=== PATIENT | male | born 1975 | race Caucasian/White ===

== ENCOUNTER 2022-04-17 11:43 | Emergency (ER) | payer MEDICARE, MEDICAID ==
[~2022-04-17] VITALS: Ht 177.8 cm; Wt 90.0 kg
[2022-04-17 12:37] LABS: BASOPHILS # (AUTO) 0.1 X10'3 (0-0.2); BASOPHILS % (AUTO) 1.7 % (0-1); EOSINOPHILS % (AUTO) 0.5 % (0-6); HEMATOCRIT 43.4 % (42.0-52.0); HEMOGLOBIN 15.2 g/dl (14.0-17.9); LYMPHOCYTES # (AUTO) 0.8 X10'3 (1.1-4.8); LYMPHOCYTES % (AUTO) 10.3 % (21-51); MEAN CORPUSCULAR HEMOGLOBIN 31.4 PG (27.0-31.0); MEAN CORPUSCULAR VOLUME 89.7 FL (78-98); MEAN PLATELET VOLUME 6.8 FL (7.4-10.4); MONOCYTES % (AUTO) 13.2 % (2-12); NEUTROPHILS # (AUTO) 5.6 X10'3 (1.8-7.7); NEUTROPHILS % (AUTO) 74.3 % (42-75); PLATELET COUNT 176 X10'3 (140-440); RED BLOOD COUNT 4.84 X10'6 (4.70-6.10); RED CELL DISTRIBUTION WIDTH 15.1 % (11.5-14.5); WHITE BLOOD COUNT 7.5 X10'3 (4.5-11.0)
[2022-04-17 12:53] LABS: ALANINE AMINOTRANSFERASE 18 U/L (12-78); ALBUMIN 3.8 G/DL (3.4-5.0); ALBUMIN/GLOBULIN RATIO 1.2 (1.1-1.5); ALKALINE PHOSPHATASE 60 IU/L (46-116); ANION GAP 9 (8-16); ASPARTATE AMINO TRANSFERASE 17 U/L (10-37); BILIRUBIN,TOTAL 0.3 MG/DL (0.1-1.0); BLOOD UREA NITROGEN 10 MG/DL (7-18); BUN/CREATININE RATIO 10.8 (5.4-32.0); CALCIUM 9.4 MG/DL (8.5-10.1); CHLORIDE 99 MMOL/L (99-107); CREATININE 0.93 MG/DL (0.60-1.10); GLUCOSE 131 MG/DL (70-104); POTASSIUM 4.2 MMOL/L (3.5-5.1); SODIUM 135 MMOL/L (135-145); TOTAL CARBON DIOXIDE 27.2 MMOL/L (24-32); eGFR 87 ML/MIN
[2022-04-17 13:02] LABS: ETHANOL < 0.010 GM/DL (0.0-0.010); VALPROATE 92 UG/ML (50-100)
[2022-04-17 14:06] LABS: CLARITY,URINE CLEAR (Clear); COLOR,URINE YELLOW (Yellow); GLUCOSE, URINE >=1000 mg/dl (Neg); KETONES,URINE >=80 mg/dl (Neg); LEUKOCYTE ESTERASE ,URINE NEGATIVE (Neg); NITRITES, URINE NEGATIVE (Neg); OCCULT BLOOD,URINE NEGATIVE (Neg); PROTEIN,URINE NEGATIVE (Neg); UROBILINOGEN,URINE 0.2 E.U/dL (0.2-1.0)
[2022-04-17 14:11] LABS: UA COLLECTION TYPE URINAL
[2022-04-17 14:15] LABS: BACTERIA,URINE FEW /HPF (Neg); MUCUS STRANDS FEW /LPF (Neg); RBC,URINE 0-2 /HPF (0-2); SQUAMOUS EPITHELIAL CELL,UR FEW /LPF (FEW); WBC,URINE 0-4 /HPF (0-4)
[2022-04-17 14:20] LABS: URINE AMPHETAMINE SCREEN NEGATIVE (Neg); URINE BARBITUATE SCREEN NEGATIVE (Neg); URINE BENZODIAZEPINES SCREEN NEGATIVE (Neg); URINE CANNABINOID SCREEN NEGATIVE (Neg); URINE COCAINE SCREEN NEGATIVE (Neg); URINE METHADONE SCREEN NEGATIVE (Neg); URINE OPIATE SCREEN NEGATIVE (Neg); URINE PHENCYCLIDINE SCREEN NEGATIVE (Neg)
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
--- NOTE | 2022-04-17 17:25 | NUR ---
ANITHA FROM [facility] STATES THAT [facility] IS AN IMD WHICH IS A HIGHER LEVEL OF CARE THAN A PHF. PT IS CONCERVED BUT NOT CONSERVED THROUGH [employer] PER AVAILABLE RECORDS.
--- NOTE | 2022-04-17 18:07 | NUR ---
SULMA YOU FROM [facility] CALLED STATING THAT THEY NEED TO HAVE [facility] EVALUATE PT. MS YOU WAS INFORMED THAT ID [facility] HER EDDIE REGARDING THIS MATTER PHONE#
[2022-04-17] MEDS ORDERED: QUET-1 PO (20:26)
--- NOTE | 2022-04-18 07:39 | NUR ---
Received Pt awake and on gurney in main ER. Pt transfered to EROF from main ER and placed in bed 26. Pt's belongins inventoried and placed in locked cabinet and Pt placed in green scrubs. Pt resting quietly at this time.
--- NOTE | 2022-04-18 09:30 | NUR ---
Pt's Blood Glucose before breakfast was 88. Pt ate breakfast and was up to bathroom. Pt calm and cooperative and returned to sleep in bed.
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
[2022-04-18] MEDS ORDERED: MULT-1085 PO (11:24)
[2022-04-18] MEDS ORDERED: DIVA-52 PO (11:24)
[2022-04-18] MEDS ORDERED: QUET200T PO (11:24)
[2022-04-18] MEDS ORDERED: SODI100035 PO (11:24)
[2022-04-18] MEDS ORDERED: DIVA500T9 PO (11:24)
[2022-04-18] MEDS ORDERED: FLO0.4C PO (11:24)
[2022-04-18] MEDS ORDERED: ATOR10TA10 PO (11:24)
[2022-04-18] MEDS ORDERED: SALI45SP (11:24)
[2022-04-18] MEDS ORDERED: MELO-102 PO (11:24)
[2022-04-18] MEDS ORDERED: ICOS1CAP PO (11:24)
[2022-04-18] MEDS ORDERED: GABA300C PO (11:24)
[2022-04-18] MEDS ORDERED: LORA10TA7 PO (11:24)
[2022-04-18] MEDS ORDERED: EMPA10TA PO (11:24)
[2022-04-18] MEDS ORDERED: DOCU-148 PO (12:20)
--- NOTE | 2022-04-18 13:05 | NUR ---
Pt's Blood glucose before lunch was 143. Pt ate lunch well. A carb controlled diet was ordered. Pt remains sleepy and calm in bed.
[2022-04-18] MEDS: divalproex sod 250mg ER (24-hour) tablet PO SCH ×3 (13:44→20:21)
[2022-04-18] MEDS: tamsulosin 0.4mg capsule PO SCH (13:44)
[2022-04-18] MEDS: EMPAGLIFLOZIN 10 MG TABLET PO SCH (13:44)
[2022-04-18] MEDS: MELOXICAM 7.5 MG TABLET PO SCH (13:44)
[2022-04-18] MEDS: multivitamins, therapeutics tablet PO SCH (13:44)
[2022-04-18] MEDS: gabapentin 300mg capsule PO SCH ×2 (13:44→20:20)
--- NOTE | 2022-04-18 14:30 | NUR ---
Med Rec. completed on Pt and meds given per orders. Jun Public Guardian/Emmie De La Rosa, contacted and she reported the plan is to have Pt evaluated by [facility] and placed in an IN-pt facility.
--- NOTE | 2022-04-18 17:00 | NUR ---
Pt seen by [facility] clinician. Pt is in bed awake and cooperative. Pt given small amount of water and ice chips.
--- NOTE | 2022-04-18 18:40 | NUR ---
Patient ambulatory to BR, steady gait. No distress observed. Continue to monitor.
[2022-04-18] MEDS ORDERED: ICOSAPENT ETHYL PO SCH (20:00)
[2022-04-18] MEDS: atorvastatin 10mg tablet PO SCH (20:20)
[2022-04-18] MEDS: quetiapine 100mg tablet PO SCH (20:20)
[2022-04-18] MEDS: sodium chloride 1gm tablet PO SCH (20:21)
--- NOTE | 2022-04-18 20:32 | NUR ---
Patient's BG checked at 139. No insulin needed. RN gave patient his night time meds. Continue to monitor.
[2022-04-18] MEDS ORDERED: quetiapine 100mg tablet PO SCH (21:00)
--- NOTE | 2022-04-18 21:23 | NUR ---
RN checked on patient and patient is awake. Patient asked for sandwich and given. No distress observed. Continue to monitor.
--- NOTE | 2022-04-18 22:55 | NUR ---
Patient sleeping supine with snoring respirations. No distress observed. Continue to monitor.
--- NOTE | 2022-04-19 00:36 | NUR ---
Patient continues to sleep supine. Respirations are equal and nonlabored. No distress observed. Continue to monitor.
--- NOTE | 2022-04-19 02:05 | NUR ---
Patient sleeping supine. Respirations equal and non-labored. Continue to monitor.
--- NOTE | 2022-04-19 03:59 | NUR ---
Patient sleeping supine. No distress observed. Continue to monitor.
--- NOTE | 2022-04-19 05:47 | NUR ---
Patient sleeping on his right side. No distress observed. Continue to monitor.
--- NOTE | 2022-04-19 07:18 | NUR ---
The patient is resting on his bed. Covid test sent to the lab. Accucheck 93
[2022-04-19] MEDS: tamsulosin 0.4mg capsule PO SCH (07:39)
[2022-04-19] MEDS: multivitamins, therapeutics tablet PO SCH (07:39)
[2022-04-19] MEDS: gabapentin 300mg capsule PO SCH ×3 (07:39→20:40)
[2022-04-19] MEDS: loratadine 10mg tablet PO SCH (07:39)
[2022-04-19] MEDS: divalproex sod 250mg ER (24-hour) tablet PO SCH ×4 (07:39→20:41)
[2022-04-19] MEDS: MELOXICAM 7.5 MG TABLET PO SCH (07:39)
[2022-04-19] MEDS: sodium chloride 1gm tablet PO SCH ×2 (07:39→20:41)
[2022-04-19] MEDS: EMPAGLIFLOZIN 10 MG TABLET PO SCH (07:39)
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
[2022-04-19] MEDS: atorvastatin 10mg tablet PO SCH (20:40)
[2022-04-19] MEDS: quetiapine 100mg tablet PO SCH (20:42)
--- NOTE | 2022-04-19 20:44 | NUR ---
PT REFUSED FULL DOSE OF SEROQUEL DUE TO "BEING TOO TIRED IN THE MORNING". 200MG GIVEN.
[2022-04-20 00:36] LABS: ALANINE AMINOTRANSFERASE 16 U/L (12-78); ALBUMIN 3.1 G/DL (3.4-5.0); ALBUMIN/GLOBULIN RATIO 0.9 (1.1-1.5); ALKALINE PHOSPHATASE 60 IU/L (46-116); ANION GAP 8 (8-16); ASPARTATE AMINO TRANSFERASE 10 U/L (10-37); BILIRUBIN,TOTAL 0.2 MG/DL (0.1-1.0); BLOOD UREA NITROGEN 16 MG/DL (7-18); BUN/CREATININE RATIO 20.8 (5.4-32.0); CHLORIDE 105 MMOL/L (99-107); CREATININE 0.77 MG/DL (0.60-1.10); GLUCOSE 132 MG/DL (70-104); SODIUM 140 MMOL/L (135-145); TOTAL CARBON DIOXIDE 27.2 MMOL/L (24-32); TOTAL PROTEIN 6.5 G/DL (6.4-8.2); eGFR > 90 ML/MIN
[2022-04-20] MEDS: EMPAGLIFLOZIN 10 MG TABLET PO SCH (07:35)
[2022-04-20] MEDS: tamsulosin 0.4mg capsule PO SCH (07:35)
[2022-04-20] MEDS: gabapentin 300mg capsule PO SCH ×3 (07:35→21:00)
[2022-04-20] MEDS: loratadine 10mg tablet PO SCH (07:36)
[2022-04-20] MEDS: divalproex sod 250mg ER (24-hour) tablet PO SCH ×4 (07:36→21:01)
[2022-04-20] MEDS: multivitamins, therapeutics tablet PO SCH (07:38)
[2022-04-20] MEDS: sodium chloride 1gm tablet PO SCH ×2 (09:56→21:01)
[2022-04-20] MEDS: MELOXICAM 7.5 MG TABLET PO SCH (09:56)
[2022-04-20] MEDS: atorvastatin 10mg tablet PO SCH (21:00)
[2022-04-20] MEDS: quetiapine 100mg tablet PO SCH (21:02)
--- NOTE | 2022-04-21 06:57 | NUR ---
Patient sleeping supine with covers over his face. Respirations nonlabored. No distress observed. Continue to monitor.
--- NOTE | 2022-04-21 08:10 | NUR ---
Patient eating breakfast. No distress observed. Continue to monitor.
[2022-04-21] MEDS: divalproex sod 250mg ER (24-hour) tablet PO SCH ×4 (09:08→22:04)
[2022-04-21] MEDS: loratadine 10mg tablet PO SCH (09:08)
[2022-04-21] MEDS: MELOXICAM 7.5 MG TABLET PO SCH (09:09)
[2022-04-21] MEDS: EMPAGLIFLOZIN 10 MG TABLET PO SCH (09:09)
[2022-04-21] MEDS: tamsulosin 0.4mg capsule PO SCH (09:09)
[2022-04-21] MEDS: sodium chloride 1gm tablet PO SCH ×2 (09:09→22:07)
[2022-04-21] MEDS: gabapentin 300mg capsule PO SCH ×3 (09:09→22:04)
[2022-04-21] MEDS: multivitamins, therapeutics tablet PO SCH (09:09)
--- NOTE | 2022-04-21 09:50 | NUR ---
Patient c/o some congestion and runny nose. Feeling tired. Lungs clear. No distress observed. Continue to monitor.
--- NOTE | 2022-04-21 11:58 | NUR ---
Patient watching T.V. No distress observed. Continue to monitor.
[2022-04-21] MEDS: docusate sod 100mg capsule PO SCH (14:13)
[2022-04-21] MEDS: atorvastatin 10mg tablet PO SCH (22:03)
[2022-04-21] MEDS: quetiapine 100mg tablet PO SCH (22:05)
[2022-04-22] MEDS ORDERED: quetiapine 100mg tablet PO ONE (01:30)
[2022-04-22] MEDS ORDERED: quetiapine 100mg tablet PO SCH (01:30)
--- NOTE | 2022-04-22 06:49 | NUR ---
PT RESTING IN ROOM. APPEARS TO BE SLEEPING. RESPIRATIONS UNLABORED AND NO DISTRESS OBSERVED.
[2022-04-22] MEDS: sodium chloride 1gm tablet PO SCH ×2 (08:22→21:35)
[2022-04-22] MEDS: EMPAGLIFLOZIN 10 MG TABLET PO SCH (08:23)
[2022-04-22] MEDS: MELOXICAM 7.5 MG TABLET PO SCH (08:23)
[2022-04-22] MEDS: multivitamins, therapeutics tablet PO SCH (08:24)
[2022-04-22] MEDS: tamsulosin 0.4mg capsule PO SCH (08:24)
[2022-04-22] MEDS: divalproex sod 250mg ER (24-hour) tablet PO SCH ×4 (08:24→21:39)
[2022-04-22] MEDS: loratadine 10mg tablet PO SCH (08:24)
[2022-04-22] MEDS: gabapentin 300mg capsule PO SCH ×3 (08:24→21:40)
[2022-04-22] MEDS: docusate sod 100mg capsule PO SCH (08:24)
--- NOTE | 2022-04-22 08:56 | NUR ---
PT RESTING IN ROOM SUPINE AFTER EATING BREAKFAST. NO DISTRESS OBSERVED.
--- NOTE | 2022-04-22 11:00 | NUR ---
PT RESTING IN ROOM WATCHING TV. NO DISTRESS OBSERVED.
--- NOTE | 2022-04-22 13:17 | NUR ---
PT SITTING UP IN BED AND WATCHING TV WHILE EATING LUNCH. PT IS CALM AND COOPERATIVE WITH ALL DIRECTIONS. PT STATES HE HAS NO COVID LIKE SYMPTOMS ONLY A SLIGHTLY SORE THROAT. NO DISTRESS OBSERVED.
--- NOTE | 2022-04-22 14:47 | NUR ---
PT UP TO USE THE RESTROOM TO HAVE BM. NO DISTRESS NOTED,WILL CONT TO MONITOR,EMILLE REFERENCE DATA EXPERT WITH THE PT .
--- NOTE | 2022-04-22 17:16 | NUR ---
pt resting in room. no signs of distress.
[2022-04-22] MEDS: atorvastatin 10mg tablet PO SCH (21:40)
[2022-04-22] MEDS: quetiapine 100mg tablet PO SCH (21:40)
--- NOTE | 2022-04-23 07:15 | NUR ---
Pt resting quietly, eyes closed. Rise and fall of chest noted. No signs of distress.
[2022-04-23] MEDS ORDERED: acetaminophen 325mg tablet PO ONE (07:55)
[2022-04-23] MEDS: tamsulosin 0.4mg capsule PO SCH (08:40)
[2022-04-23] MEDS: multivitamins, therapeutics tablet PO SCH (08:40)
[2022-04-23] MEDS: loratadine 10mg tablet PO SCH (08:40)
[2022-04-23] MEDS: gabapentin 300mg capsule PO SCH ×3 (08:41→21:26)
[2022-04-23] MEDS: docusate sod 100mg capsule PO SCH (08:42)
[2022-04-23] MEDS: divalproex sod 250mg ER (24-hour) tablet PO SCH ×4 (08:42→21:26)
[2022-04-23] MEDS: MELOXICAM 7.5 MG TABLET PO SCH (08:42)
[2022-04-23] MEDS: EMPAGLIFLOZIN 10 MG TABLET PO SCH (08:43)
[2022-04-23] MEDS: sodium chloride 1gm tablet PO SCH ×2 (08:43→20:00)
--- NOTE | 2022-04-23 08:52 | NUR ---
Patient sitting up in bed and eating breakfast.
--- NOTE | 2022-04-23 10:00 | NUR ---
Pt watching TV.
--- NOTE | 2022-04-23 11:29 | NUR ---
Pt resting quietly, eyes closed, no signs/symptoms of distress
--- NOTE | 2022-04-23 13:27 | NUR ---
PT ATE 100% OF LUNCH. PROVIDED WITH FRESH LINENS AND TOOTHBRUSH PER PATIENT REQUEST.
--- NOTE | 2022-04-23 15:02 | NUR ---
PATIENT RESTING QUIETLY, EYES CLOSED, NO SIGNS OF DISTRESS NOTED.
--- NOTE | 2022-04-23 17:46 | NUR ---
PT SITTING AT BEDSIDE WATCHING TV.
[2022-04-23] MEDS: quetiapine 100mg tablet PO SCH (21:25)
[2022-04-23] MEDS: atorvastatin 10mg tablet PO SCH (21:26)
--- NOTE | 2022-04-24 07:00 | NUR ---
PT RESTING WITH EYES CLOSED, EFFORTLESS RESPIRATIONS OBSERVED.
[2022-04-24] MEDS: docusate sod 100mg capsule PO SCH (09:54)
[2022-04-24] MEDS: divalproex sod 250mg ER (24-hour) tablet PO SCH ×4 (09:54→22:04)
[2022-04-24] MEDS: loratadine 10mg tablet PO SCH (09:54)
[2022-04-24] MEDS: gabapentin 300mg capsule PO SCH ×3 (09:55→22:04)
[2022-04-24] MEDS: sodium chloride 1gm tablet PO SCH ×2 (09:55→20:00)
[2022-04-24] MEDS: multivitamins, therapeutics tablet PO SCH (09:55)
[2022-04-24] MEDS: MELOXICAM 7.5 MG TABLET PO SCH (09:55)
[2022-04-24] MEDS: tamsulosin 0.4mg capsule PO SCH (09:55)
[2022-04-24] MEDS: EMPAGLIFLOZIN 10 MG TABLET PO SCH (10:00)
--- NOTE | 2022-04-24 11:18 | NUR ---
PT REMAINS CALM, COOPERATIVE AND DENIES NEEDS.
--- NOTE | 2022-04-24 11:22 | NUR ---
PT IS STILL COVID POSITIVE AFTER [address] FARLEY INFORMED BY INFECTION CONTROL. PT HAS TO REMAIN IN [place] FOR AN ADDITIONAL 10 DAYS; ENDING ON 04/29/22
--- NOTE | 2022-04-24 13:30 | NUR ---
assumed are of pt at this time, pt is calm coperative sitting up on edge of hospital bed. Pt was provided a lunch tray. vitals WNL, no distress noted. Pt does c/o "rash to head of penis" that he has had on and off for several years. pt usually uses vicks rub on it- assessed pt concnern with male RN political research scientist. Pt denies pain, and described rash appeared as slight redness to top of penile head, but no lesions or open areas of skin noted. Pt also states that he uses acetylcystine eye drops regularly- not noted to be on Pt MAR, pt notified that MD will be made aware, however, pt has had medications reconciled from current record with LTC facility. Pt denies SI/SH/HI at this time and has a very pleassant demeanor. Pt was educated on current plan of care and is in agreement with plan. All questions answered, will continue to monitor.
[2022-04-24] MEDS: atorvastatin 10mg tablet PO SCH (22:04)
[2022-04-24] MEDS: quetiapine 100mg tablet PO SCH (22:05)
--- NOTE | 2022-04-25 07:07 | NUR ---
pt is in room resting well, calm and cooperative at this time. No distress noted at this time.
[2022-04-25] MEDS: MELOXICAM 7.5 MG TABLET PO SCH (08:58)
[2022-04-25] MEDS: sodium chloride 1gm tablet PO SCH ×2 (08:58→20:00)
[2022-04-25] MEDS: gabapentin 300mg capsule PO SCH ×3 (08:58→21:35)
[2022-04-25] MEDS: EMPAGLIFLOZIN 10 MG TABLET PO SCH (08:59)
[2022-04-25] MEDS: tamsulosin 0.4mg capsule PO SCH (08:59)
[2022-04-25] MEDS: multivitamins, therapeutics tablet PO SCH (08:59)
[2022-04-25] MEDS: docusate sod 100mg capsule PO SCH (08:59)
[2022-04-25] MEDS: divalproex sod 250mg ER (24-hour) tablet PO SCH ×4 (09:31→21:35)
[2022-04-25] MEDS: loratadine 10mg tablet PO SCH (09:31)
[2022-04-25] MEDS: atorvastatin 10mg tablet PO SCH (21:35)
[2022-04-25] MEDS: quetiapine 100mg tablet PO SCH (21:36)
--- NOTE | 2022-04-26 05:31 | NUR ---
PT DENIED ANY NEW SI. TOOK MEDS AND TRIED TO SLEEP THROUGHOUT THE NIGHT. NO NEW COMPLAINTS, CALM AND COOPERATIVE. PT REQUESTED FOOD AROUND 2AM BECAUSE HE WAS HAVING INDIGESTION. PT WAS RESTLESS AND STATED THAT HE DID NOT SLEEP VERY WELL THROUGHOUT THE NIGHT. NO COMPLAINTS OF SOB, NO FEVERS
[2022-04-26] MEDS: docusate sod 100mg capsule PO SCH (08:48)
[2022-04-26] MEDS: multivitamins, therapeutics tablet PO SCH (08:48)
[2022-04-26] MEDS: divalproex sod 250mg ER (24-hour) tablet PO SCH ×4 (08:48→23:45)
[2022-04-26] MEDS: tamsulosin 0.4mg capsule PO SCH (08:48)
[2022-04-26] MEDS: loratadine 10mg tablet PO SCH (08:48)
[2022-04-26] MEDS: gabapentin 300mg capsule PO SCH ×3 (08:48→23:38)
--- NOTE | 2022-04-26 09:00 | NUR ---
Pt stated that he is feeling much better this morning than he has in a ling time. Pt VS are stable and no distress noted at this time.
[2022-04-26] MEDS: EMPAGLIFLOZIN 10 MG TABLET PO SCH (09:59)
[2022-04-26] MEDS: sodium chloride 1gm tablet PO SCH ×2 (09:59→23:37)
[2022-04-26] MEDS: MELOXICAM 7.5 MG TABLET PO SCH (09:59)
--- NOTE | 2022-04-26 14:44 | NUR ---
Pt is resting well at this time, Pt is safe in room, calm and cooperative. No distress noted at this time
[2022-04-26] MEDS: quetiapine 100mg tablet PO SCH (23:37)
[2022-04-26] MEDS: atorvastatin 10mg tablet PO SCH (23:38)
[2022-04-27] MEDS: loratadine 10mg tablet PO SCH (08:29)
[2022-04-27] MEDS: docusate sod 100mg capsule PO SCH (08:29)
[2022-04-27] MEDS: divalproex sod 250mg ER (24-hour) tablet PO SCH ×4 (08:29→21:18)
[2022-04-27] MEDS: gabapentin 300mg capsule PO SCH ×3 (08:29→21:18)
[2022-04-27] MEDS: tamsulosin 0.4mg capsule PO SCH (08:29)
[2022-04-27] MEDS: multivitamins, therapeutics tablet PO SCH (08:29)
[2022-04-27] MEDS: MELOXICAM 7.5 MG TABLET PO SCH (09:51)
[2022-04-27] MEDS: EMPAGLIFLOZIN 10 MG TABLET PO SCH (09:51)
[2022-04-27] MEDS: sodium chloride 1gm tablet PO SCH ×2 (09:51→21:18)
--- NOTE | 2022-04-27 10:24 | NUR ---
Pt is resting well, safe in room at this time. No distress noted at this time. Pt states that he is not SI at this time.
[2022-04-27] MEDS: atorvastatin 10mg tablet PO SCH (21:18)
[2022-04-27] MEDS: quetiapine 100mg tablet PO SCH (21:18)
[2022-04-28] MEDS: docusate sod 100mg capsule PO SCH (08:45)
[2022-04-28] MEDS: gabapentin 300mg capsule PO SCH ×3 (08:46→21:19)
[2022-04-28] MEDS: divalproex sod 250mg ER (24-hour) tablet PO SCH ×4 (08:46→21:20)
[2022-04-28] MEDS: sodium chloride 1gm tablet PO SCH ×2 (08:47→21:20)
[2022-04-28] MEDS: multivitamins, therapeutics tablet PO SCH (08:47)
[2022-04-28] MEDS: tamsulosin 0.4mg capsule PO SCH (08:47)
[2022-04-28] MEDS: loratadine 10mg tablet PO SCH (08:48)
[2022-04-28] MEDS: EMPAGLIFLOZIN 10 MG TABLET PO SCH (08:48)
[2022-04-28] MEDS: MELOXICAM 7.5 MG TABLET PO SCH (08:49)
--- NOTE | 2022-04-28 09:59 | NUR ---
TC FROM CASE MANAGEMENT. PER KRITSIE DUVAL, INFECTION CONTROL NURSE, PATIENT WILL BE REMOVED FROM ISOLATION TOMORROW (04/29) AND PROBABLY TRANSFERRED UP TO THE [facility] UNIT FOR FURTHER PSYCHIATRIC TREATMENT.
--- NOTE | 2022-04-28 11:14 | NUR ---
DELVIN FROM [facility] CALLED IN REGARDS TO THE PT's PAST POSTIVE COVID TESTS. SHE STATED, "WE ARE WANTING TO GET HIM INTO [facility] SINCE HE IS CONSERVED IN THAT [facility]. WE ARE JUST NEEDING A NEGATIVE COVID TEST." AT THIS TIME, THE PT DOES NOT APPEAR TO BE IN ANY DISTRESS.
--- NOTE | 2022-04-28 11:46 | NUR ---
CALLED [facility] TO GET APPROVAL FOR PLACEMENT AT [facility] IF MD ACCEPTS PACKET. SHAYE BLANCO [phone] STATES SHE NEEDS TO GET APPROVAL FROM HER SALES CONSULTANT TO PLACE PATIENT IN A [facility]. PUBLIC GUARDIAN SULMA [phone] STATES SHE CAN NOT MAKE THIS PLACEMENT DECISION. SHAYE STATES SHE WILL CALL THIS UTILIZATION MANAGEMENT MANAGER BACK .
--- NOTE | 2022-04-28 15:52 | NUR ---
Lynne from [facility] called in regards to the Pt's med list. [facility] is requesting medication reconciliation form for pending Pt's acceptance at the [facility]. Form was faxed over to [facility].
[2022-04-28] MEDS: atorvastatin 10mg tablet PO SCH (21:19)
[2022-04-28] MEDS: quetiapine 100mg tablet PO SCH (21:19)
[2022-04-29 05:52] VITALS: BP 127/76
--- NOTE | 2022-04-29 06:40 | NUR ---
Pt moved from ER main bed 15 to ER overflow bed 25.
--- NOTE | 2022-04-29 07:20 | NUR ---
Pt ambulated to the bathroom. Pt has been sneezing frequently.
[2022-04-29] MEDS: divalproex sod 250mg ER (24-hour) tablet PO SCH ×2 (08:35→12:35)
[2022-04-29] MEDS: loratadine 10mg tablet PO SCH (08:35)
[2022-04-29] MEDS: sodium chloride 1gm tablet PO SCH (08:35)
[2022-04-29] MEDS: gabapentin 300mg capsule PO SCH ×2 (08:35→12:34)
[2022-04-29] MEDS: multivitamins, therapeutics tablet PO SCH (08:35)
[2022-04-29] MEDS: tamsulosin 0.4mg capsule PO SCH (08:35)
[2022-04-29] MEDS: MELOXICAM 7.5 MG TABLET PO SCH (08:35)
[2022-04-29] MEDS: docusate sod 100mg capsule PO SCH (08:35)
[2022-04-29] MEDS: EMPAGLIFLOZIN 10 MG TABLET PO SCH (08:35)
--- NOTE | 2022-04-29 08:58 | NUR ---
Pt was cooperative with his medications. Pt ate 100% of breakfast. Pt is c/o runny and stuffy nose. Pt is sneezing frequently. Pt was given Claritin this morning. Pt is endorsing moderate depression. Pt denies SI/HI/AH/VH.
--- NOTE | 2022-04-29 10:19 | NUR ---
Behavioral Health from [facility] called to inquire about the patient. They are familiar with this patient and they are presenting him to their doctor.
--- NOTE | 2022-04-29 12:24 | NUR ---
[facility] office called to check that pt has completed his 10 days of isolation for Covid. She will look into which facilities will accept pt without a negative Covid swab.
--- NOTE | 2022-04-29 13:16 | NUR ---
Pt ambulated to the bathroom.
--- NOTE | 2022-04-29 14:36 | NUR ---
Lynne from the [facility] office called to report that pt has been accepted at [facility], hand picker time ETA 1530. They would like a nurse to nurse report: [phone].
--- NOTE | 2022-04-29 14:41 | NUR ---
Called and gave a nurse to nurse report to Jona CLOUD at [facility].
--- NOTE | 2022-04-29 16:11 | NUR ---
Pt is dressed and awaiting industrial tractor driver.
--- NOTE | 2022-04-29 16:23 | NUR ---
Pt discharged, ambulated off the unit accompanied by security and county customer service driver. All belongings including wallet and AFAR player sent with the patient. Pt transferred to [facility].
== END 2022-04-29 16:23 ==
LOC: ER 11:44
DX: U07.1 COVID-19 (principal); F20.9 Schizophrenia, unspecified; R10.84 Generalized abdominal pain; R00.0 Tachycardia, unspecified; E78.00 Pure hypercholesterolemia, unspecified; I10 Essential (primary) hypertension; E11.9 Type 2 diabetes mellitus without complications; Z72.89 Other problems related to lifestyle; Z88.8 Allergy status to other drugs, medicaments and biological substances; Z79.899 Other long term (current) drug therapy
CPT/HCPCS: 36415; 74018; 80053; 80164; 80305; 80320; 81001; 82948; 84443; 85025; 87811; 93005; 99285

== ENCOUNTER 2024-12-26 17:30 | Emergency (ER) | payer MEDICARE, MEDICAID ==
[~2024-12-26] VITALS: Ht 172.7 cm; Wt 81.2 kg
[~2024-12-26 17:30] MED LIST: ATOR10TA10 PO; DIVA500T9 PO; DOCU-148 PO; EMPA10TA PO; GABA300C PO; ICOS1CAP PO; LORA10TA7 PO; MELO-102 PO; MULT-1085 PO; QUET-1 PO; QUET200T PO; SALI45SP; SODI100035 PO; TAMS-55 PO
[2024-12-26 17:33] VITALS: BP 140/88; PULSE 109; RESP 15; TEMP 97.8; O2SAT 97
--- NOTE | 2024-12-26 17:45 | Physician Documentation ---
History of Present Illness ~ Chief Complaint: Diabetic Complication Stated Complaint: HIGH BLOOD SUGAR OK to notify your PCP?: Yes Primary Medical Doctor: ank Source: patient Mode of Arrival: POV Exam Limitations: no limitations HPI 49-year-old male presenting with elevated blood sugar with his caregivers. He s tates that he is taking Ozempic for his type 2 diabetes and they checked his sugar which was higher than his normal. He does not have any prescription or any insulin. His blood glucose in triage was 166. Medication Reconciliation Allergies: Coded Allergies: escitalopram (Verified Allergy, Unknown, 04/17/22) glipizide (Verified Allergy, Unknown, 04/17/22) Scheduled Atorvastatin Calcium (Lipitor), 1 TAB PO HS, (Reported) Divalproex ER* (Depakote ER*), 1 TAB PO QID, (Reported) Docusate Sodium (Colace), 5 CAP PO Q12H, (Reported) Empagliflozin (Jardiance), 1 TAB PO DAILY, (Reported) Gabapentin (Neurontin), 1 CAP PO TID, (Reported) Icosapent Ethyl (Vascepa), 1 CAP PO BID, (Reported) Loratadine (Loratadine), 1 TAB PO DAILY, (Reported) Meloxicam (Meloxicam), 1 TAB PO DAILY, (Reported) Multivitamin (Multi Vitamin Daily), 1 TAB PO DAILY, (Reported) Quetiapine Fumarate (Seroquel), 1 TAB PO HS, (Reported) Quetiapine Fumarate (Seroquel), 400 MG PO HS, (Reported) Sodium Chloride (Sodium Chloride), 1 TAB PO BID, (Reported) Tamsulosin Hcl* (Flomax*), 1 CAP PO DAILY, (Reported) Miscellaneous Medications Saliva Stimulant Agents Comb.3 (Biotene Moisturizing Mouth), (Reported) Past Medical History Past Medical History: High Cholesterol, Hypertension, Diabetes, Schizophrenia Past Surgical History: noncontributory Alcohol Use: Occasionally Drug Use: none Lives In: Assisted Care Review of Systems All Other Systems at this time: Reviewed and Negative Physical Exam Vital Signs: RN Vital Signs have been reviewed: Yes, Temperature: 97.8, Source: Temporal, Heart Rate: 109, Respiratory Rate: 15, BP: 140/88, Pulse Oximetry: 97, Weight: 81.250 Pulse Oximetry Reflects: adequate oxygenation Physical Exam General: Alert, no distress. HEENT: No injection, moist mucous membranes. Neck: Full range of motion. Respiratory: No respiratory distress, equal chest rise and fall. Chest: No accessory muscle use. Cardiovascular: Regular rate and rhythm. Gastrointestinal: Nondistended. Extremities: Normal range of motion, no deformity. Neurologic: Oriented x4. Psychiatric: Normal mood and affect. Skin: Normal color, warm and dry. Progress Results/Orders Results/Orders Vital Signs 12/26/24 17:33 Temp 97.8 Pulse 109 Resp 15 B/P (MAP) 140/88 Pulse Ox 97 Departure Referrals: NO PRIMARY CARE PROVIDER (PCP) Additional Comment Medical Screen Exam This patient recieved a medical screening examination. After reviewing the individual's medical complaints with presenting symptoms and performing an appropriate physical examination, it was determined that no immediate life- threatening emergency medical condition is present. This individual is also not a women having contractions. [facility] Dec 26, 2024 17:45
== END 2024-12-26 22:29 | disposition left against medical advice (07) ==
LOC: ER 17:31
DX: E11.65 Type 2 diabetes mellitus with hyperglycemia (principal); E78.00 Pure hypercholesterolemia, unspecified; F20.9 Schizophrenia, unspecified; I10 Essential (primary) hypertension; Z79.85 Long-term (current) use of injectable non-insulin antidiabetic drugs; Z88.8 Allergy status to other drugs, medicaments and biological substances; Z79.899 Other long term (current) drug therapy; Z72.89 Other problems related to lifestyle
CPT/HCPCS: 82948; 99282

== ENCOUNTER 2025-02-15 18:11 | Emergency (ER) | payer MEDICARE, MEDICAID ==
[~2025-02-15] VITALS: Ht 175.3 cm; Wt 93.6 kg
[2025-02-15 18:26] VITALS: BP 150/83; PULSE 99; RESP 15; O2SAT 95
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
[2025-02-15 19:10] LABS: LEUKOCYTE ESTERASE ,URINE NEGATIVE (Neg); NITRITES, URINE NEGATIVE (Neg); OCCULT BLOOD,URINE NEGATIVE (Neg)
[2025-02-15 19:12] LABS: UA COLLECTION TYPE CLN CATCH MIDSTREAM
[2025-02-15 19:18] LABS: SQUAMOUS EPITHELIAL CELL,UR NONE SEEN /LPF (FEW)
[2025-02-15 20:50] VITALS: TEMP 96.3
== END 2025-02-15 20:51 | disposition home or self-care (01) ==
LOC: EEVIPCON 18:12 → ER 18:12
DX: Z00.00 Encounter for general adult medical examination without abnormal findings (principal); E11.9 Type 2 diabetes mellitus without complications; E78.00 Pure hypercholesterolemia, unspecified; F20.9 Schizophrenia, unspecified; I10 Essential (primary) hypertension; Z72.89 Other problems related to lifestyle; Z88.8 Allergy status to other drugs, medicaments and biological substances; Z79.899 Other long term (current) drug therapy
CPT/HCPCS: 81001; 99283

== ENCOUNTER 2025-03-18 13:54 | Emergency (ER) | payer MEDICARE, MEDICAID ==
[~2025-03-18] VITALS: Ht 175.3 cm; Wt 95.5 kg
[2025-03-18 13:59] VITALS: BP 159/83; PULSE 98; RESP 16; TEMP 98.2; O2SAT 99
--- NOTE | 2025-03-18 14:16 | Physician Documentation ---
HPI ~ General Chief Complaint: Medication Refill Stated Complaint: MED REFILL Time Seen by MD: 14:06 Primary Medical Doctor: jose luis History of Present Illness HPI Comments Patient is a 49-year-old male that presents to the emergency department with a guardian for refill of his medications. Prescription for metoprolol will be refilled her in the emergency department today. Patient has no other concerns at this time. Blood pressure and vitals were monitored and appropriate. Medication Reconciliation Allergies: Coded Allergies: escitalopram (Verified Allergy, Unknown, 03/18/25) glipizide (Verified Allergy, Unknown, 03/18/25) Scheduled Atorvastatin Calcium (Lipitor), 1 TAB PO HS, (Reported) Divalproex ER* (Depakote ER*), 1 TAB PO QID, (Reported) Docusate Sodium (Colace), 5 CAP PO Q12H, (Reported) Empagliflozin (Jardiance), 1 TAB PO DAILY, (Reported) Gabapentin (Neurontin), 1 CAP PO TID, (Reported) Icosapent Ethyl (Vascepa), 1 CAP PO BID, (Reported) Loratadine (Loratadine), 1 TAB PO DAILY, (Reported) Meloxicam (Meloxicam), 1 TAB PO DAILY, (Reported) Metoprolol Tartrate (Metoprolol Tartrate), 0.5 TAB PO Q12H Multivitamin (Multi Vitamin Daily), 1 TAB PO DAILY, (Reported) Quetiapine Fumarate (Seroquel), 1 TAB PO HS, (Reported) Quetiapine Fumarate (Seroquel), 400 MG PO HS, (Reported) Sodium Chloride (Sodium Chloride), 1 TAB PO BID, (Reported) Tamsulosin Hcl* (Flomax*), 1 CAP PO DAILY, (Reported) Miscellaneous Medications Saliva Stimulant Agents Comb.3 (Biotene Moisturizing Mouth), (Reported) Past Medical History Past Medical History: High Cholesterol, Hypertension, Diabetes, Schizophrenia Past Surgical History: noncontributory Alcohol Use: Occasionally Drug Use: none Lives In: Assisted Care Review of Systems ROS As stated above in the HPI, otherwise all systems are reviewed and negative. Physical Exam Physical Exam Vital Signs: Temperature: 98.2, Source: Temporal, Heart Rate: 98, Respiratory Rate: 16, BP: 159/83, Pulse Oximetry: 99, Weight: 95.450 Oxygen Flow Rate: 0 Physical Exam VITALS: Reviewed and as above. GENERAL: Alert, no apparent distress. HEENT: Normocephalic, atraumatic, PERRL, EOMI, dry mucosa, no erythema RESPIRATORY: Lungs clear, normal breath sounds, no respiratory distress. CHEST: No accessory muscle use, no retractions CV: Regular rate, rhythm, no edema, no murmur, No: JVD GI: Soft, non-tender, bowels sounds present, no rebound, guarding, or rigidity BACK: No CVA tenderness, or swelling MUSCULOSKELETAL No deformities, no edema SKIN: Warm and dry, no rash NEURO: Oriented x4, No motor or sensory deficit PSYCH: Normal mood and affect, no agitation Progress Results/Orders Results/Orders Vital Signs 03/18/25 13:59 Temp 98.2 Pulse 98 Resp 16 B/P (MAP) 159/83 Pulse Ox 99 O2 Flow Rate 0 Medical Decision Making Findings Patient is a 49-year-old male that presents to the emergency department with a guardian for refill of his medications. Prescription for metoprolol will be refilled her in the emergency department today. Patient has no other concerns at this time. Blood pressure and vitals were monitored and appropriate. Differential Dx:Considerations: Include: Adverse circumstances, Economic, Psychosocial, Medical services unavail., Medication refill, Medication non- compliance, Other Departure Disposition: 01 HOME / SELF CARE / HOMELESS Impression: Primary Impression: General medical exam Additional Impression: Medication refill Condition: Stable Discharge Instructions: Medical Screening Exam, Medicine Refill at the Emergency Department Additional Instructions: Patient is a 49-year-old male that presents to the emergency department with a guardian for refill of his medications. Prescription for metoprolol will be refilled her in the emergency department today. Patient has no other concerns at this time. Blood pressure and vitals were monitored and appropriate. Referrals: NO PRIMARY CARE PROVIDER (PCP) Prescriptions Metoprolol Tartrate (Metoprolol Tartrate) 25 Mg Tablet 0.5 TAB PO Q12H for 60 Days, #60 TAB 0 Refills Prov: PRABHJOT COX 03/18/25 Education Educated: Patient Educated regarding: diagnosis, need for follow up Signature Scribe Signature: A Attestation: Scribed for Emergency,Department by AMARJIT Chavez . 03/18/25 14:22 PRABHJOT COX [employer] Mar 18, 2025 14:16
[2025-03-18] MEDS ORDERED: METO25TA6 PO (14:21)
== END 2025-03-18 14:57 | disposition home or self-care (01) ==
LOC: ER 13:55
DX: Z00.00 Encounter for general adult medical examination without abnormal findings (principal); Z76.0 Encounter for issue of repeat prescription; E11.9 Type 2 diabetes mellitus without complications; E78.00 Pure hypercholesterolemia, unspecified; F20.9 Schizophrenia, unspecified; I10 Essential (primary) hypertension; Z88.8 Allergy status to other drugs, medicaments and biological substances
CPT/HCPCS: 99281